=== PATIENT | female | born 1970 | race Caucasian/White ===

== ENCOUNTER 2017-01-16 13:03 | Inpatient (IN) ==
[2017-01-16 13:31] LABS: Hematocrit 30.7 % (35.3-44.9); Immature Platelets 5.4 % (1.1-6.1); Mean Corpuscular HGB Conc 32.6 g/dL (31.6-35.5); Mean Corpuscular Hemoglobin 28.8 pg (28.0-33.3); Mean Corpuscular Volume 88.5 fL (83.0-100.0); Mean Platelet Volume 10.5 fL (9.4-12.4); Red Blood Count 3.47 M/mcL (3.82-4.97); Red Cell Distribution Width 13.2 % (11.5-14.5)
[2017-01-16 13:42] LABS: BUN/Creatinine Ratio 34 (6-26); Blood Urea Nitrogen 23 mg/dL (7-20); Calcium 8.8 mg/dL (8.6-10.8); Carbon Dioxide 25 mEq/L (19-29); Chloride 109 mEq/L (98-109); Glucose 97 mg/dL (70-99); Osmolality,Calculated 296 (280-300); Potassium 4.2 mEq/L (3.5-4.5); Sodium 141 mEq/L (136-145); eGFR For African Americans > 60 (> 60); eGFR For Non-African Americans > 60 (> 60)
[2017-01-16] MEDS ORDERED: Pantoprazole 40 MG VIAL IVP ONE (14:02)
--- NOTE | 2017-01-16 14:07 | Emergency Department Note ---
Disposition Clinical Impression: Hematochezia Anemia Qualifiers: Anemia type: unspecified type Qualified Code(s): D64.9 - Anemia, unspecified Disposition: Admitted As Inpatient Condition: Fair Time of Disposition: 14:08 GI Bleed HPI - General Chief complaint: ED GI Bleed Stated complaint: Poss GI Bleed Time Seen by Provider: 01/16/17 13:16 Source: patient Limitations: no limitations Nursing Notes Reviewed: Yes Vital Signs Reviewed: Yes - History of Present Illness HPI Narrative: Presents with blood in the stool which started 3 days ago and is associated with black tarry stools, intermittent, continuous in the sense that her symptoms is occurring. She does have systemic symptoms of lightheadedness which is worse when she sits up and ambulates. Has some abdominal cramping. No abdominal discomfort at this time. Stop taking aspirin on Friday. She had taken Xarelto several years ago when she had a GI bleed which is what they thought was from a gastric ulcer which is no longer taking this medication for her atrial fibrillation. Social history: No smoking or alcohol or drugs - Related Data Home Medications Medication Instructions Recorded Confirmed BuPROPion XL (24 HR) [Wellbutrin 300 mg PO DAILY 01/16/17 01/16/17 XL] FentaNYL PATCH [Duragesic] 100 mcg TD Q72H 01/16/17 01/16/17 Furosemide [Lasix] 20 mg PO DAILY 01/16/17 01/16/17 HYDROcodone/Acet 10/325 mg [[place] 1 tab PO TID PRN 01/16/17 01/16/17 10-325 mg] LORazepam [Ativan] 0.5 mg PO BID 01/16/17 01/16/17 Omeprazole [PriLOSEC] 20 mg PO BIDAC 01/16/17 01/16/17 Sotalol [Betapace] 80 mg PO Q12HR 01/16/17 01/16/17 Allergies Allergy/AdvReac Type Severity Reaction Status Date / Time Sulfa (Sulfonamide AdvReac Palpitation Verified 01/16/17 13:07 Antibiotics) s Review of Systems: Constitutional: No fever Vision: No blurred vision ENT: No rhinorrhea Respiratory: No cough Allergic: No allergies : No blood in urine GI: + blood in stool Hematologic: No bruising Dermatologic: No skin rash Musculoskeletal: No pain in the extremities Neuro: No numbness of the extremities Past Medical History - Past Medical History Medical history: Reports: arthritis, atrial fibrillation Psychiatric history: Reports: depression 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 EYES: PERRL, no scleral icterus. NOSE: The nose is normal in appearance without rhinorrhea RESP: Normal chest excursion with respiration; breath sounds clear and equal bilaterally; no wheezes, rhonchi, or rales CARD: Regular rhythm, without murmurs, rub or gallop ABD: Non-distended; non-tender, soft,without rigidity, rebound or guarding SKIN: Normal for age and race; warm and dry; no apparent lesions Rectal examination is done by the student without any lesions seen and is grossly bloody and also associated with black tarry coloration - General Limitations: no limitations General appearance: alert Course Vital Signs Temperature 98.2 F 01/16/17 13:07 Pulse Rate 78 01/16/17 13:07 Respiratory Rate 20 01/16/17 13:07 Blood Pressure 106/69 01/16/17 13:07 O2 Sat by Pulse Oximetry 98 01/16/17 13:07 Temperature 98.0 F 01/16/17 19:56 Pulse Rate 65 01/16/17 19:56 Respiratory Rate 17 01/16/17 19:56 Blood Pressure 117/78 01/16/17 19:56 O2 Sat by Pulse Oximetry 98 01/16/17 19:56 Oxygen Delivery Oxygen Delivery Room Air GI Bleed - [facility] Narrative Medical decision making narrative: I did speak with the hospitalist and patient will be admitted to the hospital. IV Protonix, I did review the labs and the hemoglobin has fallen. No transfusion is indicated at this time. GI will be consulted the patient will watch closely with serial hemoglobin measurements. 1407 - Medical Records Medical records reviewed: Yes I reviewed the patient's medical records. - Lab Data Lab results reviewed: Yes I reviewed the patient's lab results. Result diagrams: 01/16/17 21:51 01/16/17 13:21 Lab Results 11/11/2401/16/17 01/16/17 Range/Units 13:21 13:21 13:21 WBC 4.2 L (4.3-11.1) K/mcL RBC 3.47 L (3.82-4.97) M/mcL Hgb 10.0 L (11.5-15.4) g/dL Hct 30.7 L (35.3-44.9) % MCV 88.5 (83.0-100.0) fL MCH 28.8 (28.0-33.3) pg MCHC 32.6 (31.6-35.5) g/dL RDW 13.2 (11.5-14.5) % Plt Count 167 (140-400) K/mcL MPV 10.5 (9.4-12.4) fL Immature Plt Fraction 5.4 (1.1-6.1) % Sodium 141 (136-145) mEq/L Potassium 4.2 (3.5-4.5) mEq/L Chloride 109 (98-109) mEq/L Carbon Dioxide 25 (19-29) mEq/L BUN 23 H (7-20) mg/dL Creatinine 0.67 (0.57-1.11) mg/dL Est GFR ( Amer) > 60 (> 60) Est GFR (Non-Af Amer) > 60 (> 60) BUN/Creatinine Ratio 34 H (6-26) Glucose 97 (70-99) mg/dL Calculated Osmolality 296 (280-300) Calcium 8.8 (8.6-10.8) mg/dL Blood Type A POSITIVE Antibody Screen NEGATIVE
[2017-01-16] MEDS ORDERED: Naloxone 0.4 MG/ML INJ IVP PRN (15:47)
[2017-01-16] MEDS ORDERED: Ondansetron 4 MG/2 ML VIAL IVP PRN (15:47)
[2017-01-16] MEDS ORDERED: Pantoprazole 80 MG in 0.9 % Sodium Chloride 250 ML IVC SCH ×2 (16:00→18:45)
[2017-01-16 16:33] LABS: Hematocrit 29.8 % (35.3-44.9); Hemoglobin 9.6 g/dL (11.5-15.4)
--- NOTE | 2017-01-16 17:52 | Internal Med History&Physical ---
<AlfonzomikeysusanLeeroy lavares - Last Filed: 01/16/17 18:14> Date of Encounter: 01/16/17 Time of Encounter: 16:00 Assessment and Plan (1) GI bleeding Current visit: Yes Status: Acute Acute GI bleed that patient reports started on Friday with black, tarry stool with bright red blood. Reports no BM since Friday. Pt. not on anticoagulation for atrial fibrillation w/exception of 81 mg aspirin which she stopped on Friday. Pt. reports excess flatus, abdominal cramping. Protonix drip started. IV 0.9 NS 100 mL/HR. NPO for now. GI consult ordered in ED. CTA of the abdomen/ pelvis ordered. Continuous cardiac telemetry. EKG ordered stat. Monitor pt. for signs of bleeding, cardiac, and/or respiratory distress. She is at high-risk for further morbidity based on current GI bleed, sx, and hx. Inpatient. Qualifiers: GI bleed type/associated pathology: unspecified gastrointestinal hemorrhage type Qualified Code(s): K92.2 - Gastrointestinal hemorrhage, unspecified (2) Anemia Current visit: Yes Status: Chronic Hx of chronic anemia r/t GI bleeding. Hgb 10.0, then 9.6 today. Hct 30.7, then 29.8 today. Previously 12.7 and 39.1 on 05/03/15. Iron panel ordered. Monitor pt for signs of bleeding. Pt. previously typed and screened for transfusions if necessary. Qualifiers: Anemia type: unspecified type Qualified Code(s): D64.9 - Anemia, unspecified (3) History of atrial fibrillation Current visit: Yes Status: Acute Hx of chronic atrial fibrillation. Stable and pt. currently in rhythm. Continue sotalol. Continuous cardiac telemetry. (4) DVT prophylaxis Current visit: Yes Status: Acute Bilateral SCDs on LEs for DVT prophylaxis. Pharmacologic DVT prophylaxis contraindicated due to patient's current GI bleed. Internal Medicine - H&P: HPI Chief complaint: GI bleeding Admitted From: Emergency Dept Plans for Post Hospital Care: Home History of present illness: Ms. Spring is a 46 year old female with medical hx of arthritis and atrial fibrillation presents from the ED with chief complaint of GI bleeding since Friday. Patient states she short of breath starting Friday and began having stomach cramps and abdominal pain. Patient states she used the restroom and bowel movement was black with bright red blood. He denies bowel movement since Friday. Patient also states she has been lightheaded and dizzy with ambulation. Patient takes no blood thinner for atrial fibrillation with exception of aspirin which she stopped taking on Friday. Patient states she was previously on Xarelto but was taken off d/t GI bleeding. Denies hx of EGD or colonoscopy. Patient denies recent illness, fever, chills, nausea, vomiting , chest pain, palpitations, headache, changes in vision, shortness of breath, cough, chest congestion, pre-syncope, or syncope. Past Med Surg Social Fam HX - Past Medical History Source: patient, old records reviewed, obtained from family Medical history: arthritis, atrial fibrillation Psychiatric history: depression - Past Surgical History Surgical History: knee replacement - Social History Smoking Status: Never smoker Smokeless Tobacco Status: No Alcohol use: none Drug use: none Occupational status: employed Current living situation: Home Activity Level: Independent ambulation Recent Out of Country Travel Within the Last 8 Weeks: No Exposure or Possible Exposure to Illness During Travel: No - Family History Mother Adopted: No Race: Family Member Ethnicity: Non- Living Status: Still Living Hx Family Musculoskeletal Disorders: Yes (Arthritis) Father Adopted: No Race: Family Member Ethnicity: Non- Living Status: Age at : 55 Cause of : [place] Hx Family Cardiac Disorders: Yes (CAD, [place]) Hx Family Endocrine Disorder: Yes (DM) Brother Race: Family Member Ethnicity: Non- Living Status: Still Living Hx Family Medical Disorders: No Sister Race: Family Member Ethnicity: Non- Living Status: Still Living Hx Family Medical Disorders: No Internal Medicine - H&P: Meds BuPROPion XL (24 HR) [Wellbutrin XL] 300 mg PO DAILY 01/16/17 [History] FentaNYL PATCH [Duragesic] 100 mcg TD Q72H 01/16/17 [History] Furosemide [Lasix] 20 mg PO DAILY 01/16/17 [History] HYDROcodone/Acet 10/325 mg [[place] 10-325 mg] 1 tab PO TID PRN 01/16/17 [History] LORazepam [Ativan] 0.5 mg PO BID 01/16/17 [History] Omeprazole [PriLOSEC] 20 mg PO BIDAC 01/16/17 [History] Sotalol [Betapace] 80 mg PO Q12HR 01/16/17 [History] 3 Allergy/AdvReac Type Severity Reaction Status Date / Time Sulfa (Sulfonamide AdvReac Palpitation Verified 01/16/17 13:07 Antibiotics) s All Systems PM: A 10-system review of systems was performed and is negative for pertinent findings except as documented above in the HPI. - Constitutional Constitutional: no chills, no fever(s), no night sweats - EENT Eyes: no change in vision, no discharge, no pain, no photophobia Ears: no ear discharge, no ear pain, no tinnitus Nose, mouth and throat: no dysphagia, no nasal discharge, no neck pain, no sore throat - Breasts Breasts: as per HPI - Cardiovascular Cardiovascular ROS IM: as per HPI, lightheadedness, no chest pain, no diaphoresis, no dyspnea, no palpitations, no syncope - Respiratory Respiratory: no cough, no dyspnea, no wheezing, no excessive phlegm production - Gastrointestinal Gastrointestinal: as per HPI, abdominal pain, excessive flatus, hematochezia, melena - Genitourinary Genitourinary: no change in urinary stream, no dysuria, no flank pain, no hematuria Menstruation: as per HPI - Musculoskeletal Musculoskeletal ROS IM: no numbness, no tingling - Integumentary Integumentary IM: no rash, no unusual bruising - Neurological Neurological ROS: no confusion, no convulsions, no focal weakness, no numbness, no tingling, no tremor(s) - Psychiatric Psychiatric: as per HPI - Endocrine Endocrine IM: as per HPI - Hematologic/Lymphatic Hematologic/Lymphatic: no easy bruising - Allergic/Immunologic Allergic/Immunologic: as per HPI - Constitutional Vitals: Temp Pulse Resp BP Pulse Ox 97.5 F L 65 16 102/63 100 01/16/17 16:15 01/16/17 16:15 01/16/17 16:15 01/16/17 16:15 01/16/17 16:15 General appearance: Present: cooperative, A&O X 3, pleasant, no acute distress, obese, answers questions appropriately - Head Head exam: Present: atraumatic, normal inspection, normocephalic - Eye Eye exam: Present: PERRL, conjuntiva pink, sclera anicteric Pupils: Present: PERRL - ENT ENT exam: Present: normal exam, normal external ear exam - Neck Neck exam general surgery: Present: normal inspection, supple, trachea midline. Absent: lymphadenopathy - Respiratory Respiratory exam: Present: CTAB. Absent: accessory muscle use, rales, rhonchi, wheezes - Cardiovascular Cardiovascular exam: Present: RRR, +S1, +S2. Absent: diastolic murmur, gallop, rubs, systolic murmur - GI/Abdominal GI/Abdominal exam: Present: diminished bowel sounds, soft, no peritoneal signs. Absent: distended, tenderness - Rectal Rectal exam: Present: deferred - Additional comments: exam deferred. - Extremities Exam Extremities exam: Present: pedal edema, warm, radial pulses palpable and symmetrical - Back Exam Back exam: Present: normal inspection - Neurological Exam Neurological exam: Present: CN II-XII intact, oriented X3, no focal deficits. Absent: pronater drift, facial droop, speech deficit - Psychiatric Psychiatric exam: Present: normal affect, normal mood - Skin Skin exam: Present: dry, intact Internal Med - H&P Results - Labs CBC & Chem 7: 01/16/17 16:17 01/16/17 13:21 Labs: Short CBC 01/16/17 Range/Units 16:17 Hgb 9.6 L (11.5-15.4) g/dL Hct 29.8 L (35.3-44.9) % <Hasmukh Burrell P - Last Filed: 01/16/17 18:52> Date of Encounter: 01/16/17 Internal Medicine - H&P: HPI History of present illness: Ms. Spring is a 46 year old female All Systems PM: A 10-system review of systems was performed and is negative for pertinent findings except as documented above in the HPI. - Constitutional Vitals: Temp Pulse Resp BP Pulse Ox 97.5 F L 65 16 102/63 100 01/16/17 16:15 01/16/17 16:15 01/16/17 16:15 01/16/17 16:15 01/16/17 16:15 Internal Med - H&P Results - Labs CBC & Chem 7: 01/16/17 16:17 01/16/17 13:21 Labs: Short CBC 01/16/17 Range/Units 16:17 Hgb 9.6 L (11.5-15.4) g/dL Hct 29.8 L (35.3-44.9) % - Attending Attestation I examined this patient and my medical decision-making was reviewed with the Resident Physician/ MEDIA SERVICES DIRECTOR. I agree with the documented findings, disposition and treatment plan as described except to the extent set forth below. agree with above
[2017-01-16] MEDS: 0.9 % Sodium Chloride 1,000 ML IVC SCH (18:33)
[2017-01-16] MEDS: *HR* LORazepam 0.5 MG TABLET PO SCH (21:26)
[2017-01-16 21:58] LABS: Hematocrit 27.8 % (35.3-44.9)
[2017-01-17 04:32] LABS: Basophils % 0.7 %; Eosinophils # 0.2 K/mcL (0.0-0.6); Eosinophils % 4.7 %; Hematocrit 28.1 % (35.3-44.9); Lymphocytes # 1.8 K/mcL (0.6-4.6); Lymphocytes % 41.4 %; Mean Corpuscular Hemoglobin 28.5 pg (28.0-33.3); Mean Corpuscular Volume 88.9 fL (83.0-100.0); Mean Platelet Volume 10.3 fL (9.4-12.4); Monocytes # 0.3 K/mcL (0.0-1.3); Monocytes % 6.5 %; Neutrophils # 2.1 K/mcL (1.6-8.9); Platelet Count 123 K/mcL (140-400); Red Blood Count 3.16 M/mcL (3.82-4.97); Red Cell Distribution Width 13.2 % (11.5-14.5); Segmented Neutrophils % 46.7 %
[2017-01-17] MEDS: 0.9 % Sodium Chloride 1,000 ML IVC SCH ×2 (04:34→18:12)
[2017-01-17] MEDS: Pantoprazole 80 MG in 0.9 % Sodium Chloride 250 ML IVC SCH ×2 (04:35→23:18)
[2017-01-17 04:44] LABS: Hemoglobin A1C 4.8 %
[2017-01-17 04:46] LABS: % Iron Saturation 8 % (15-50); Albumin 3.1 g/dL (3.5-5.0); Albumin/Globulin Ratio 1.3 (1.1-2.2); Alkaline Phosphatase 58 Units/L (38-126); Aspartate Amino Transferase 8 Units/L (5-34); BUN/Creatinine Ratio 28 (6-26); Bilirubin,Total 0.6 mg/dL (0.2-1.2); Blood Urea Nitrogen 17 mg/dL (7-20); Calcium 8.4 mg/dL (8.6-10.8); Carbon Dioxide 25 mEq/L (19-29); Chloride 110 mEq/L (98-109); Chol/HDL Ratio 2.7 (0-4.9); Cholesterol 129 mg/dL (< 200); Globulin 2.3 g/dL (2.4-3.5); Glucose 91 mg/dL (70-99); HDL Cholesterol 47 mg/dL (40-59); Iron 31 mcg/dL (50-170); LDL Cholesterol,Calculated 70 mg/dL (0-99); Magnesium 1.9 mg/dL (1.6-2.6); Osmolality,Calculated 289 (280-300); Potassium 3.6 mEq/L (3.5-4.5); Sodium 139 mEq/L (136-145); Total Protein 5.4 g/dL (6.0-8.3); Transferrin 272 mg/dL (180-382); Triglycerides 60 mg/dL (< 150); eGFR For African Americans > 60 (> 60); eGFR For Non-African Americans > 60 (> 60)
[2017-01-17 04:51] LABS: INR 1.1; Prothrombin Time 11.5 Seconds (9.4-12.1)
[2017-01-17 04:53] LABS: Alanine Aminotransferase < 6 Units/L (0-55)
[2017-01-17 04:54] LABS: Activated Partial Thrombo Time 31.3 Seconds (26.0-36.0)
--- NOTE | 2017-01-17 09:05 | Anesthesia Evaluation PreOp ---
Date of Encounter: 01/17/17 Time of Encounter: 09:02 - Past History Planned Operation: EGD (GI bleed) Cardiac History: Arrhythmia (A fib - on sotalol and takes a baby aspirin only for anti-coagulation (pt had hx of GIB on xarelto)) Pulmonary History: Denies Any Significant HX NEUROCRITICAL CARE PHYSICIAN History: Denies Any Significant HX Other Medical History: GERD (hx gastric ulcer - GI bleed previously at site of gastric bypass), Other (arthritis) Anesthesia History: No Prior Anesthetic Complications Alcohol Use: none Drug use: none Medications and Allergies BuPROPion XL (24 HR) [Wellbutrin XL] 300 mg PO DAILY 01/16/17 [History] FentaNYL PATCH [Duragesic] 100 mcg TD Q72H 01/16/17 [History] Furosemide [Lasix] 20 mg PO DAILY 01/16/17 [History] HYDROcodone/Acet 10/325 mg [[place] 10-325 mg] 1 tab PO TID PRN 01/16/17 [History] LORazepam [Ativan] 0.5 mg PO BID 01/16/17 [History] Omeprazole [PriLOSEC] 20 mg PO BIDAC 01/16/17 [History] Sotalol [Betapace] 80 mg PO Q12HR 01/16/17 [History] 3 Allergy/AdvReac Type Severity Reaction Status Date / Time Sulfa (Sulfonamide AdvReac Palpitation Verified 01/16/17 13:07 Antibiotics) s - Meds/Allergy Pre-op Review Medications Reviewed: Yes Allergies Reviewed: Yes Beta Blockers on Current Med List: Yes If Beta Blockers taken, Date/Time (Last Dose taken): 01-17-17 6:12 sotalol Anesthesia Results - Labs 01/17/17 04:19 01/17/17 04:19 Anesthesia Exam Last Vital Signs Temp 97.9 F 01/17/17 06:54 Pulse 65 01/17/17 06:54 Resp 15 01/17/17 06:54 BP 105/69 01/17/17 06:54 Pulse Ox 97 01/17/17 06:54 Weight: 86 kg - HEENT Pupil (Motor): Pupils equal, EOMI Mallampati: I Teeth: Normal Oral Opening: Greater than 3 - NEUROCRITICAL CARE PHYSICIAN LOC: Oriented NEUROCRITICAL CARE PHYSICIAN Motor: Normal RUE, Normal LUE, Normal RLE, Normal LLE, Normal Face - Cardiac Rhythm: Regular Murmur: None - Pulmonary Breath Sounds: bilateral Clear Respiratory Effort: Symmetrical Anesthesia Assess/Plan ASA Score: 2 Modified Hannah Scale for Level of Consciousness: Cooperative, oriented, and tranquil Anesthetic Plan: MAC Monitoring Plan: Standard Monitors Recovery Plan: PACU
[2017-01-17] MEDS ORDERED: Simethicone 40 MG/0.6 ML MLS IR ONE (09:28)
[2017-01-17] MEDS ORDERED: Tetracaine/Benzocaine/Butamben 200MG/SPRAY (100SPY/BOT) MM ONE (09:28)
[2017-01-17] MEDS ORDERED: *HR* EPINEPHrine 1 MG/10 ML SYRINGE INTRATRACH PRN (10:00)
--- NOTE | 2017-01-17 10:45 | Gastroenterology Consult Note ---
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 Patient presented with a hemoglobin of 10 currently 9.0, iron studies demonstrate iron deficiency. Plan: - Discussed with patient improving iron intake including food such as spinach and kale and oral supplementation. - Close follow-up with PCP Qualifiers: Anemia type: unspecified type Qualified Code(s): D64.9 - Anemia, unspecified (2) GI bleeding Current Visit: Yes Status: Acute Assessment and plan: 46-year-old female presenting after dark tarry stools, history of GI bleed 4 years ago with gastric ulcer identified. Currently has normocytic anemia with low iron studies. - Patient underwent EGD today identifying a gastric ulcer for which she receives epinephrine injection - Repeat H&H at 1600 if stable patient may discharge with follow-up with gastroenterology in 2 weeks. Qualifiers: GI bleed type/associated pathology: unspecified gastrointestinal hemorrhage type Qualified Code(s): K92.2 - Gastrointestinal hemorrhage, unspecified - Time Spent With Patient Total time spent is greater than 50% in coordination of care (as documented) at patient's floor/unit and/or counseling patient: GI History of Present Illness - Data of Consult Consult date: 01/17/17 Requesting Physician: Idalmis Caba MD - Consult Narrative Reason for consult: melena History of present illness: Ms. Spring is a 46 year old female history of GI bleed, gastric bypass 10 years ago and proximal atrial fibrillation admitted with history of dark tarry stools. Patient states that on Friday after going to a routine cardiology follow-up she went to work and had abdominal discomfort and had a bowel movement that was dark, tarry and bowel ordered. She had a similar episode 4 years prior when she had an upper GI bleed secondary to an ulcer near her bypass surgery site. She said that she continued to have follow older flatulence throughout the week that were concerning for a GI bleed so she presented for evaluation. She has not had a bowel movement since Friday which she said is fairly normal for her as she is on a fentanyl patch and has a bowel movement once every 4-5 days. She denies any epigastric discomfort, acid reflux , abdominal pains, nausea vomiting diarrhea, bloating, blood in her sputum, noticeable blood in her stools, or per rectum, or blood in her urine. She states that she has never had a colonoscopy, her last EGD was 4 years ago secondary to a GI bleed for which she had an ulcer treated and has been taking omeprazole 20 mg twice a day since. She is currently not on Carafate and only takes a daily aspirin. She denies any other signs or symptoms of concern. Colonoscopy: Denies history EGD: 4 years ago Past Med Surg Social Fam HX - Past Medical History Medical history: arthritis, atrial fibrillation Psychiatric history: depression - Past Surgical History Surgical History: knee replacement - Social History Smoking Status: Never smoker Smokeless Tobacco Status: No Alcohol use: none Drug use: none - Family History Mother Adopted: No Race: Family Member Ethnicity: Non- Living Status: Still Living Hx Family Musculoskeletal Disorders: Yes (Arthritis) Father Adopted: No Race: Family Member Ethnicity: Non- Living Status: Age at : 55 Cause of : [place] Hx Family Cardiac Disorders: Yes (CAD, [place]) Hx Family Endocrine Disorder: Yes (DM) Brother Race: Family Member Ethnicity: Non- Living Status: Still Living Hx Family Medical Disorders: No Sister Race: Family Member Ethnicity: Non- Living Status: Still Living Hx Family Medical Disorders: No All systems PM: reviewed and no additional remarkable complaints except as stated - Gastrointestinal Gastrointestinal: Present: constipation. Absent: abdominal pain, bloating, change in bowel habits, coffee ground emesis, diarrhea, dyspepsia, heartburn, hematemesis, hematochezia, melena, nausea, vomiting - Constitutional Constitutional: no anorexia, no fatigue, no weight gain, no weight loss - EENT Ears: Absent: tinnitus Nose, mouth and throat: Absent: dysphagia, hoarseness, sore throat, throat swelling - Cardiovascular Cardiovascular ROS: Absent: chest pain, palpitations - Respiratory Respiratory IM: Absent: cough, dyspnea, hemoptysis - Genitourinary Genitourinary: Absent: change in color, Urinary frequency - Neurological ROS Neurological GI: Absent: confusion, dizziness, frequent falls, headache(s) - Hematologic/Lymphatic Hematologic/Lymphatic pediatric: Absent: easy bleeding - Integumentary Integumentary GI: Absent: jaundice - Psychiatric ROS Psychiatric GI: Present: as per HPI - Constitutional Vitals: Temp Pulse Resp BP Pulse Ox 98.0 F 62 16 101/37 100 01/17/17 09:23 01/17/17 09:23 01/17/17 09:23 01/17/17 09:23 01/17/17 09:23 General appearance: Present: A&O X 3, pleasant, no acute distress - Head Head exam: Present: atraumatic, normal inspection, normocephalic - Eye Eye exam: Present: normal appearance, conjuntiva pink. Absent: scleral icterus - Neck Neck exam general surgery: Present: normal inspection, trachea midline - Respiratory Respiratory exam: Present: CTAB - Cardiovascular Cardiovascular exam: Present: RRR, +S1, +S2 - GI/Abdominal GI/Abdominal exam: Present: normal bowel sounds, soft, no peritoneal signs - Rectal Rectal exam: Present: deferred - Neurological Exam Neurological exam: Present: no focal deficits Results - Labs CBC & Chem 7: 01/17/17 04:19 01/17/17 04:19 Labs: Last Result Calcium 8.4 mg/dL (8.6-10.8) L 01/17/17 04:19 Iron 31 mcg/dL (50-170) L 01/17/17 04:19 % Saturation 8 % (15-50) L 01/17/17 04:19 Transferrin 272 mg/dL (180-382) 01/17/17 04:19 Triglycerides 60 mg/dL (< 150) 01/17/17 04:19 Entire Visit Hgb 9.0 g/dL (11.5-15.4) L 01/17/17 04:19 Hct 28.1 % (35.3-44.9) L 01/17/17 04:19 PT 11.5 Seconds (9.4-12.1) 01/17/17 04:19 Total Bilirubin 0.6 mg/dL (0.2-1.2) 01/17/17 04:19 AST 8 Units/L (5-34) 01/17/17 04:19 ALT < 6 Units/L (0-55) 01/17/17 04:19 - ABG ABG results: PT/INR, D-dimer PT 11.5 Seconds (9.4-12.1) 01/17/17 04:19 - Impressions Impressions Abdomen/Pelvis CTA 01/16/17 17:52 IMPRESSION: Postsurgical changes are again seen within the stomach. No areas of active contrast extravasation or acute intra-abdominal/intrapelvic abnormality identified. Fibroid uterus. D/ / Jo Hdez MD / Jo Hdez MD Interpreting Provider: Jo Hdez MD Consult Discharge Plan - Plan Referrals: Vincent Bermudez MD [Partnered Physician] - 01/27/17 4:00 pm
[2017-01-17] MEDS: *HR* LORazepam 0.5 MG TABLET PO SCH ×2 (13:13→21:28)
[2017-01-17] MEDS: BuPROPion XL (24 HR) 150 MG TABLET PO SCH (13:13)
[2017-01-17 16:08] LABS: Hematocrit 26.4 % (35.3-44.9); Hemoglobin 8.6 g/dL (11.5-15.4)
--- NOTE | 2017-01-17 19:08 | Electrocardiograph Report ---
[place] [id number] Test Date: 2017-01-16 Pat Name: Elizabeth Spring Department: 115 Room: 3A42 Gender: F Technology Specialist: : [id number] Requested By: Leeroy Hicks Order Number: [id number] Reading MD: Leon Johnson MD Measurements Intervals [place] Rate: 71 P: -11 SD: 155 QRS: -41 QRSD: 101 T: 6 QT: 403 QTc: 425 Interpretive Statements SINUS RHYTHM MARKED LEFT AXIS DEVIATION LOW QRS VOLTAGE IN PRECORDIAL LEADS Electronically Signed On 01-17-2017 19:07:11 EST by Leon Johnson MD
--- NOTE | 2017-01-17 23:45 | Internal Med Progress Note ---
Date of Encounter: 01/17/17 Time of Encounter: 14:42 - Assessment and plan (1) GI bleeding Current Visit: Yes Status: Acute Assessment and plan: s/p epinephrine injection today. Repeat H&H at 4 pm. Would consider d/c today but patient had hypotension and needs closer monitoring. Qualifiers: GI bleed type/associated pathology: unspecified gastrointestinal hemorrhage type Qualified Code(s): K92.2 - Gastrointestinal hemorrhage, unspecified (2) Hypotension Current Visit: Yes Status: Acute Assessment and plan: Serial BP monitoring done and was resolved. Could be due to low fluid or from pain medication. Will observe today. Sotalol will now have hold parameters incase hypotensive. Qualifiers: Hypotension type: unspecified hypotension type Qualified Code(s): I95.9 - Hypotension, unspecified (3) History of atrial fibrillation Current Visit: Yes Status: Acute (4) Anemia Current Visit: Yes Status: Chronic Qualifiers: Anemia type: unspecified type Qualified Code(s): D64.9 - Anemia, unspecified - Subjective Interval history: Returned from EGD. Reports indicate patient had small ulcerations that were injected with epinephrine. It was reported to RN that patient had a fentanyl patch that was found. She was transiently hypotensive. Serial blood pressures taken and BP improved. - Constitutional Vitals: Temp Pulse Resp BP Pulse Ox 98.0 F 80 14 122/61 100 01/17/17 21:23 01/17/17 21:23 01/17/17 21:23 01/17/17 21:23 01/17/17 21:23 General appearance: Present: cooperative, A&O X 3, pleasant, no acute distress, obese, answers questions appropriately Exam: CVS: RRR Lungs: CTAB Abd: NT/ND EXT: normal pulses, no edema Internal Medicine: Result - Labs CBC & Chem 7: 01/17/17 15:52 01/17/17 04:19 Labs: Short CBC 01/17/17 01/17/17 Range/Units 04:19 15:52 WBC 4.4 (4.3-11.1) K/mcL Hgb 9.0 L 8.6 L (11.5-15.4) g/dL Hct 28.1 L 26.4 L (35.3-44.9) % Plt Count 123 L (140-400) K/mcL Neutrophils # 2.1 (1.6-8.9) K/mcL BMP 01/17/17 04:19 Sodium 139 Potassium 3.6 Chloride 110 H Carbon Dioxide 25 BUN 17 Creatinine 0.60 Glucose 91 Calcium 8.4 L Liver Function 01/17/17 Range/Units 04:19 Total Bilirubin 0.6 (0.2-1.2) mg/dL AST 8 (5-34) Units/L ALT < 6 (0-55) Units/L Alkaline Phosphatase 58 (38-126) Units/L Albumin 3.1 L (3.5-5.0) g/dL - ABG Interpretation ABG results: PT/INR, D-dimer PT 11.5 Seconds (9.4-12.1) 01/17/17 04:19 Consult Discharge Plan - Plan Referrals: Vincent Bermudez MD [Partnered Physician] - 01/27/17 4:00 pm
[2017-01-18] MEDS: 0.9 % Sodium Chloride 1,000 ML IVC SCH (03:53)
[2017-01-18 06:22] LABS: Basophils % 0.4 %; Eosinophils # 0.2 K/mcL (0.0-0.6); Eosinophils % 4.1 %; Hematocrit 26.7 % (35.3-44.9); Hemoglobin 8.6 g/dL (11.5-15.4); Immature Granulocytes % 0.2 % (0-4); Lymphocytes # 1.8 K/mcL (0.6-4.6); Lymphocytes % 35.6 %; Mean Corpuscular HGB Conc 32.2 g/dL (31.6-35.5); Mean Corpuscular Hemoglobin 28.6 pg (28.0-33.3); Mean Corpuscular Volume 88.7 fL (83.0-100.0); Mean Platelet Volume 10.9 fL (9.4-12.4); Monocytes # 0.3 K/mcL (0.0-1.3); Monocytes % 6.2 %; Neutrophils # 2.8 K/mcL (1.6-8.9); Platelet Count 125 K/mcL (140-400); Red Blood Count 3.01 M/mcL (3.82-4.97); Red Cell Distribution Width 13.1 % (11.5-14.5); Segmented Neutrophils % 53.5 %
[2017-01-18 06:35] LABS: Albumin 2.9 g/dL (3.5-5.0); Albumin/Globulin Ratio 1.3 (1.1-2.2); Alkaline Phosphatase 58 Units/L (38-126); Aspartate Amino Transferase 8 Units/L (5-34); BUN/Creatinine Ratio 17 (6-26); Bilirubin,Total 0.6 mg/dL (0.2-1.2); Blood Urea Nitrogen 10 mg/dL (7-20); Calcium 8.2 mg/dL (8.6-10.8); Carbon Dioxide 24 mEq/L (19-29); Chloride 113 mEq/L (98-109); Globulin 2.2 g/dL (2.4-3.5); Glucose 98 mg/dL (70-99); Osmolality,Calculated 291 (280-300); Potassium 3.5 mEq/L (3.5-4.5); Sodium 141 mEq/L (136-145); Total Protein 5.1 g/dL (6.0-8.3); eGFR For African Americans > 60 (> 60); eGFR For Non-African Americans > 60 (> 60)
[2017-01-18 06:42] LABS: Alanine Aminotransferase < 6 Units/L (0-55)
[2017-01-18 07:01] VITALS: BP 106/58
[2017-01-18] MEDS: BuPROPion XL (24 HR) 150 MG TABLET PO SCH (08:53)
[2017-01-18] MEDS: *HR* LORazepam 0.5 MG TABLET PO SCH (08:53)
--- NOTE | 2017-01-18 09:52 | Discharge Summary ---
Date of Encounter: 01/18/17 Time of Encounter: 09:47 - Discharge Diagnosis (1) GI bleeding Priority: Primary Status: Resolved Qualifiers: GI bleed type/associated pathology: unspecified gastrointestinal hemorrhage type Qualified Code(s): K92.2 - Gastrointestinal hemorrhage, unspecified (2) Hypotension Priority: Secondary Status: Resolved Qualifiers: Hypotension type: unspecified hypotension type Qualified Code(s): I95.9 - Hypotension, unspecified (3) History of atrial fibrillation Priority: Secondary Status: Chronic (4) Anemia Priority: Secondary Status: Chronic Qualifiers: Anemia type: unspecified type Qualified Code(s): D64.9 - Anemia, unspecified - Discharge Medications Home Medications: BuPROPion XL (24 HR) [Wellbutrin Xl] 300 mg PO DAILY 01/16/17 [History] FentaNYL PATCH [Duragesic] 100 mcg TD Q72H 01/16/17 [History] Furosemide [Lasix] 20 mg PO DAILY 01/16/17 [History] HYDROcodone/Acet 10/325 mg [[place] 10-325 mg] 1 tab PO TID PRN 01/16/17 [History] LORazepam [Ativan] 0.5 mg PO BID 01/16/17 [History] Omeprazole [PriLOSEC] 20 mg PO BIDAC 01/16/17 [History] Sotalol [Betapace] 80 mg PO Q12HR 01/16/17 [History] Docusate Sodium [Colace] 100 mg PO DAILY #30 capsule 01/18/17 [Rx] Ferrous Sulfate 325 mg PO DAILY #30 tablet 01/18/17 [Rx] Allergies/Adverse Reactions: 3 Allergy/AdvReac Type Severity Reaction Status Date / Time Sulfa (Sulfonamide AdvReac Palpitation Verified 01/16/17 13:07 Antibiotics) s Procedures/tests Complete & Pending: Procedures Performed prior 72 hours Category Date Time Status CT angio abdomen pelvis [CT] Stat Cat Scan 01/16/17 17:52 Completed EKG [ECG 12 lead ECG] [ECG] Stat Y 01/16/17 17:48 Completed Date of admission: 01/16/17 15:47 Primary care physician: PCP NONE Discharging clinician: Idalmis Caba - Patient Status Disposition: Home, Self-Care Condition: Fair Functional capacity at discharge: independent ambulation Overall status at discharge: patient is progressing back to baseline - Discharge Instructions Follow Up With: Vincent Bermudez MD [Partnered Physician] - 01/27/17 4:00 pm - Diet and Activity Activity: increase activity as tolerated Diet: advance to your usual diet Hospital course: Ms. Spring is a 46 year old female with medical hx of arthritis and atrial fibrillation presents from the ED with chief complaint of GI bleeding for 4-5 days. Started with dyspnea and began having abdominal pain. Patient states she used the restroom and bowel movement was black with bright red blood. Patient also states she has been lightheaded and dizzy with ambulation. She does not take any anticoagulant for atrial fibrillation with exception of aspirin which she stopped taking on 4 days ago. Patient states she was previously on Xarelto but was taken off d/t GI bleeding. Denies hx of EGD or colonoscopy. Patient denies recent illness, fever, chills, nausea, vomiting, chest pain, palpitations, headache, changes in vision, shortness of breath, cough, chest congestion, pre-syncope, or syncope. She presented with a hemoglobin of 9.6, previously 12.7 on 04/2015. She was started on protonix drip, given maintenance iv fluid and brought in for observation. Se underwent EGD 01/17 identifying a gastric ulcer and she received epinephrine injection. Post op she did become hypotensive. A fentanyl patch was on her and it was removed. She was given IVF. Her blood pressure improved. Her H&H was stable and BP stable overnight. She was discharged home in stable condition. She was prescribed ferrous sulfate daily, and colace as well. - Time Spent with Patient Total time spent providing and/or coordinating discharge services: - Constitutional Vitals: Temp Pulse Resp BP Pulse Ox 97.8 F 63 16 106/58 100 01/18/17 06:53 01/18/17 06:53 01/18/17 06:53 01/18/17 06:53 01/18/17 06:53 General appearance: Present: cooperative, A&O X 3, pleasant, no acute distress, obese, answers questions appropriately Exam: Head Head exam: Present: atraumatic, normal inspection, normocephalic - Eye Eye exam: Present: normal appearance, conjuntiva pink. Absent: scleral icterus - Neck Neck exam general surgery: Present: normal inspection, trachea midline - Respiratory Respiratory exam: Present: CTAB - Cardiovascular Cardiovascular exam: Present: RRR, +S1, +S2 - GI/Abdominal GI/Abdominal exam: Present: normal bowel sounds, soft, no peritoneal signs - Rectal Rectal exam: Present: deferred - Neurological Exam Neurological exam: Present: no focal deficits
[2017-01-18] MEDS ORDERED: Lidocaine -MPF 2% 5 ML VIAL INFILT ONE (11:41)
[2017-01-18] MEDS ORDERED: *HR* Propofol 200 MG/20 ML VIAL IVP ONE (11:41)
== END 2017-01-18 11:42 | disposition home or self-care (01) | DRG 379 ==
LOC: 3ANU 13:03 → EMEROO 13:03 → 3ANU 15:00
PROVIDERS: ADMIT Internal Medicine; ATTEND Student in an Organized Health Care Education/Training Program